=== PATIENT | male | born 1960 | race Caucasian/White ===

== ENCOUNTER → 2017-04-06 | Outpatient (CLI) | payer MEDICARE, OTHER ==
[~2017-04-06] MED LIST: CHOLESTEROL MED; CLEOCIN HC150 MG/CAP PO; CYMBALTA 30MG30 MG PO; LAMISIL AT1% TP; LOPID 600M600 MG/TAB PO; LOPID PO; LORTAB PO; MORPHINE SULFAT30 M5 PO; MS CONTIN100 MG PO; NIACIN1000 MG PO; PERCOCET 500 MG1 TAB PO; PHENERGAN 25 TA25 MG PO; PHENERGAN25 MG RC; PRILOSEC 20MG20 MG PO; RITALIN 20M20 MG/TAB PO; ROXICODONE 55 MG/TAB PO; SLO-NIACIN750 MG PO; SYNTHROID0.075 MG/T PO; TOPAMAX200 MG PO; WELLBUTRIN 75MG75 MG PO; WELLBUTRIN PO; ZUN SPOT1% TP; acid reflux med; mood stabilizer; triglyceride med
== END ==
LOC: COL.LAB 13:12
DX: Z01.89 Encounter for other specified special examinations (principal)

== ENCOUNTER → 2017-11-04 | Outpatient (CLI) | payer MEDICARE ==
[~2017-11-04] VITALS: Ht 177.8 cm; Wt 120.3 kg
[~2017-11-04] MED LIST changes: +ATARAX 25MG25 MG/TAB PO; +COLACE 100100 MG/CAP PO; +GLUCOPHAGE1000 MG PO; +GLUCOPHAGE500 MG/TAB PO; +JANUVIA 100MG100 MG PO; +KLONOPIN2 MG PO; +LATUDA120 MG PO; +LIPITOR 40MG TA40 MG PO; +MASON NATURAL2000 IU PO; +PERCOCET 325 MG1 TA2 PO; -PERCOCET 500 MG1 TAB PO; +TRILEPTAL600 MG PO
[2017-11-04 10:35] VITALS: BP 161/84; PULSE 72
[2017-11-04 11:54] VITALS: BP 125/67; PULSE 84
[2017-11-04 11:55] VITALS: BP 113/62; PULSE 82
[2017-11-04 11:56] VITALS: BP 114/65; PULSE 80
[2017-11-04 11:57] VITALS: BP 124/61; PULSE 79
== END ==
LOC: COL.CARD 10:17
DX: R07.9 Chest pain, unspecified (principal); E78.00 Pure hypercholesterolemia, unspecified
CPT/HCPCS: A9502; J2785

== ENCOUNTER → 2017-11-11 | Outpatient (CLI) | payer MEDICARE | LOC: COL.RAD 11-06 09:45 | DX: R16.0 Hepatomegaly, not elsewhere classified (principal); K76.0 Fatty (change of) liver, not elsewhere classified; K83.8 Other specified diseases of biliary tract ==

== ENCOUNTER 2018-07-15 11:23 | Inpatient (IN) | payer MEDICARE ==
[~2018-07-15] VITALS: Ht 177.8 cm; Wt 122.5 kg
[2018-07-15] VITALS (337 sets, daily range): BP systolic 129–195; BP diastolic 75–112; PULSE 68–69; TEMP 97.6–98.2; O2SAT 95–100
[2018-07-15 11:57] LABS: BASO # 0.1 (0.0-0.2); BASO % 1.1 % (0.0-2.0); EOS # 0.2 (0.0-0.7); EOS % 2.1 % (0-4.0); GRAN # 4.5 (1.4-6.5); HEMATOCRIT 45.9 % (42.0-52.0); HEMOGLOBIN 16.3 g/dl (13.5-18.0); LYMPH # 2.4 (1.2-3.4); LYMPH % 29.9 % (20.0-51.0); MEAN CELL VOLUME 86 fl (80.0-100.0); MEAN CORPUSCULAR HEMOGLOBIN 31 pg (27.0-31.0); MEAN CORPUSCULAR HGB CONC 36 g/dl (33.0-37.0); MEAN PLATELET VOLUME 10.2 fl (7.4-10.4); MONO # 0.8 (0.1-0.6); MONO % 10.2 % (1.7-9.3); PLATELET COUNT 211 K/mm3 (130-400); RED BLOOD COUNT 5.35 M/mm3 (4.20-5.60); REDCELL DISTRIBUTION WIDTH-CV 12.9 % (11.5-14.5)
[2018-07-15 12:05] LABS: INR 1.1 (0.8-3.0); PARTIAL THROMBOPLASTIN TIME 41.3 SECONDS (26.0-37.0); PROTHROMBIN TIME 12.9 SECONDS (9.7-12.8)
[2018-07-15 12:08] LABS: ALANINE AMINOTRANSFERASE 61 U/L (21-72); ALBUMIN 4.9 gm/dL (3.5-5.0); ALKALINE PHOSPHATASE 90 U/L (50-136); ANION GAP 14 mmol/L (7-16); AST,SGOT 48 U/L (15-37); BILIRUBIN,TOTAL 0.6 mg/dL (0.0-1.0); BLOOD UREA NITROGEN 11 mg/dL (9-20); CALCIUM 9.4 mg/dL (8.4-10.2); CARBON DIOXIDE 24 mmol/L (22-30); CHLORIDE 92 mmol/L (98-107); CREATININE, serum 0.78 mg/dL (0.66-1.25); GLUCOSE 137 mg/dL (74-106); LIPASE 133 U/L (23-300); POTASSIUM 4.3 mmol/L (3.4-5.0); SODIUM 131 mmol/L (137-145); TOTAL PROTEIN 8.3 gm/dL (6.4-8.2)
[2018-07-15 12:20] LABS: TROPONIN-I < 0.012 ng/mL (0.000-0.034)
[2018-07-15] MEDS ORDERED: EPA FISH OIL1 SGL PO (12:58)
[2018-07-15] MEDS ORDERED: PRINIVIL10 MG PO (12:59)
[2018-07-15] MEDS ORDERED: MS CONTIN 330 MG/TAB PO (13:02)
[2018-07-15] MEDS ORDERED: TENORMIN100 MG PO (13:04)
[2018-07-15] MEDS ORDERED: FLEXERIL 1010 MG/TAB PO (16:41)
[2018-07-15] MEDS ORDERED: ATARAX 25MG25 MG/TAB PO (16:46)
[2018-07-15] MEDS ORDERED: MIRALAX PA17 GM/Dose PO (16:51)
[2018-07-16] VITALS (581 sets, daily range): BP systolic 143–152; BP diastolic 82–95; PULSE 67–80; TEMP 97.6–98.7; O2SAT 85–100
[2018-07-16 06:02] LABS: BASO # 0.1 (0.0-0.2); BASO % 0.6 % (0.0-2.0); EOS # 0.1 (0.0-0.7); EOS % 1.4 % (0-4.0); GRAN # 5.1 (1.4-6.5); GRAN % 60.9 % (42.2-75.2); HEMATOCRIT 41.4 % (42.0-52.0); LYMPH # 2.1 (1.2-3.4); LYMPH % 25.8 % (20.0-51.0); MEAN CELL VOLUME 86 fl (80.0-100.0); MEAN CORPUSCULAR HEMOGLOBIN 31 pg (27.0-31.0); MEAN CORPUSCULAR HGB CONC 36 g/dl (33.0-37.0); MEAN PLATELET VOLUME 9.9 fl (7.4-10.4); MONO # 0.9 (0.1-0.6); MONO % 10.6 % (1.7-9.3); PLATELET COUNT 186 K/mm3 (130-400); RED BLOOD COUNT 4.84 M/mm3 (4.20-5.60)
[2018-07-16 06:40] LABS: CALCIUM 8.8 mg/dL (8.4-10.2); CREATININE, serum 0.69 mg/dL (0.66-1.25); POTASSIUM 4.1 mmol/L (3.4-5.0)
[2018-07-16] MEDS ORDERED: PRINIVIL10 MG PO (12:39)
== END 2018-07-16 13:07 | disposition home or self-care (01) | DRG 305 ==
LOC: COL.ER 11:23 → MEDICAL 13:49 → ICU 16:38
PROVIDERS: Emergency Medicine; Physician Assistant
DX: I16.1 Hypertensive emergency (principal); E87.1 Hypo-osmolality and hyponatremia; E11.9 Type 2 diabetes mellitus without complications; E78.5 Hyperlipidemia, unspecified; F31.9 Bipolar disorder, unspecified; F17.220 Nicotine dependence, chewing tobacco, uncomplicated; G89.29 Other chronic pain; M54.5 Low back pain
CPT/HCPCS: 99223-AI; 99239; J0360; J1170; J1650; J2060; J2270; J2360; J2405; J2765; J7030; J7050

== ENCOUNTER → 2019-01-19 | Outpatient (CLI) | payer OTHER, MEDICARE ==
[~2019-01-19] MED LIST changes: +EPA FISH OIL1 SGL PO; +FLEXERIL 1010 MG/TAB PO; +MIRALAX PA17 GM/Dose PO; +MS CONTIN 330 MG/TAB PO; +PRINIVIL10 MG PO; +TENORMIN100 MG PO
== END ==
LOC: MHCPAIN 10:50
DX: G89.29 Other chronic pain (principal); M47.817 Spondylosis without myelopathy or radiculopathy, lumbosacral region; M54.16 Radiculopathy, lumbar region; M53.3 Sacrococcygeal disorders, not elsewhere classified; M96.1 Postlaminectomy syndrome, not elsewhere classified
CPT/HCPCS: G0463

== ENCOUNTER 2019-02-03 23:50 | Observation (INO) | payer MEDICARE ==
[~2019-02-03] VITALS: Ht 177.8 cm; Wt 111.1 kg
[2019-02-04] VITALS (147 sets, daily range): BP systolic 124–168; BP diastolic 68–99; PULSE 58–89; TEMP 97.9–98.6; O2SAT 93–99
[2019-02-04 00:17] LABS: BASO # 0.1 (0.0-0.2); BASO % 0.9 % (0.0-2.0); EOS # 0.1 (0.0-0.7); EOS % 1.5 % (0-4.0); GRAN # 2.5 (1.4-6.5); GRAN % 46.7 % (42.2-75.2); HEMATOCRIT 43.4 % (42.0-52.0); HEMOGLOBIN 15.1 g/dl (13.5-18.0); LYMPH % 37.1 % (20.0-51.0); MEAN CELL VOLUME 88 fl (80.0-100.0); MEAN CORPUSCULAR HEMOGLOBIN 31 pg (27.0-31.0); MEAN CORPUSCULAR HGB CONC 35 g/dl (33.0-37.0); MEAN PLATELET VOLUME 9.9 fl (7.4-10.4); MONO # 0.7 (0.1-0.6); MONO % 13.6 % (1.7-9.3); PLATELET COUNT 152 K/mm3 (130-400); RED BLOOD COUNT 4.92 M/mm3 (4.20-5.60); REDCELL DISTRIBUTION WIDTH-CV 13.2 % (11.5-14.5)
[2019-02-04 00:22] LABS: INR 1.2 (0.8-3.0); PROTHROMBIN TIME 13.2 SECONDS (9.7-12.8)
[2019-02-04 00:25] LABS: PARTIAL THROMBOPLASTIN TIME 37.4 SECONDS (26.0-37.0)
[2019-02-04] MEDS ORDERED: NORVASC 10MG10 MG PO (00:27)
[2019-02-04 00:28] LABS: ALBUMIN 4.9 gm/dL (3.5-5.0); BILIRUBIN,TOTAL 0.5 mg/dL (0.0-1.0); CALCIUM 9.9 mg/dL (8.4-10.2); CREATININE, serum 0.8 (0.66-1.25); POTASSIUM 4.3 mmol/L (3.4-5.0); TOTAL PROTEIN 8.3 gm/dL (6.4-8.2)
[2019-02-04] MEDS ORDERED: COLACE 100100 MG/CAP PO ×2 (00:29→05:21)
[2019-02-04] MEDS ORDERED: ZESTRIL 20MG TA20 MG PO (00:31)
[2019-02-04] MEDS ORDERED: RITALIN 20M20 MG/TAB PO (00:32)
[2019-02-04] MEDS ORDERED: MORPHINE 1515 MG/TAB PO (00:33)
[2019-02-04] MEDS ORDERED: TRILEPTAL600 MG PO (00:34)
[2019-02-04] MEDS ORDERED: MSIR30 MG PO (00:34)
[2019-02-04] MEDS ORDERED: PRILOSEC 20MG20 MG PO (00:34)
[2019-02-04 00:38] LABS: TROPONIN-I 0.013 ng/mL (0.000-0.035)
--- NOTE | 2019-02-04 03:50 | NUR ---
Called over to the ED and received report from TOSIN Del Castillo. Patient will be brought over shortly.
--- NOTE | 2019-02-04 04:00 | NUR ---
Patient arrives at this time via strecther. Patient transfers self to unit bed by sliding over. Attached to monitoring equipment. Assessment complete. Assessment reveals vitals within normal limits. Lung sounds clear with diminished bases. Bowel sounds active x4. HR and rhythm regular, normal S1 and S2 heard. Patient has no complaints of pain at this time. No skin issues noted. Skin is warm, dry, and intact. Patient's Nallely is at the bedside. Obtained patient history, med rec, and allergies. MRSA swab complete. Patient is now resting in bed comfortably. Notified RT to bring over CPAP per patient request. Oriented patient and spouse to room and unit. Requests some water, to be provided with medications. Urinal placed within reach. No further needs at this time. Will continue to monitor. call light within reach.
[2019-02-04] MEDS ORDERED: TYLENOL 500MG500 MG PO (04:33)
[2019-02-04 04:52] LABS: CHOLESTEROL RISK RATIO 3.6; MAGNESIUM 1.7 mg/dL (1.6-2.3)
[2019-02-04] MEDS ORDERED: BETAMETHASONE VA0.1% TP (05:13)
[2019-02-04] MEDS ORDERED: WELLBUTRIN SR150 M1 PO ×2 (05:15)
[2019-02-04] MEDS ORDERED: SYNTHROID0.088 MG/T PO (05:24)
[2019-02-04] MEDS ORDERED: PRINIVIL20 MG PO (05:25)
[2019-02-04] MEDS ORDERED: PRINIVIL40 MG PO (05:26)
[2019-02-04] MEDS ORDERED: METADATECD20 PO (05:28)
[2019-02-04] MEDS ORDERED: MS CONTIN 115 MG/TAB PO ×2 (05:32)
[2019-02-04] MEDS ORDERED: NARCAN4 MG NS (05:34)
[2019-02-04] MEDS ORDERED: TYLENOL 8 HR PO (05:39)
--- NOTE | 2019-02-04 07:20 | NUR ---
Bedside report given to TOSIN Conner
--- NOTE | 2019-02-04 07:20 | NUR ---
Report recieved from Diana LEAHY. Patient and asleep in room at this time. Call light at side, offers no S/S distress or discomcfort.
--- NOTE | 2019-02-04 10:30 | NUR ---
Received report on pt from Dalila LEAHY.
--- NOTE | 2019-02-04 10:50 | NUR ---
Received pt to floor from ICU. Pt in chair, oriented to room. Denies any pain or needs at this time. Call light in reach. Breathing even and unlabored, no shortness of breath. PT alert and oriented. Breath sounds clear, pulses palpable. Will continue to monitor.
--- NOTE | 2019-02-04 10:50 | NUR ---
Transferred to room 358 via wheelchair. Selma LEAHY in room to greet patient. Patient transfers self to recliner without diff. Call light and phone at side.
--- NOTE | 2019-02-04 17:00 | NUR ---
Went in pt room to give insulin on sliding scale. Taught pt about insulin and why he was ordered to receive it. Pt was hesistant and requested his blood sugar be taken again closer to dinner so he did not have to receive a shot. Will retake before dinner at 1800. Call light in reach.
--- NOTE | 2019-02-04 19:06 | NUR ---
Hand off report given to Amber LEAHY. Pt denies any needs at this time.
--- NOTE | 2019-02-04 20:00 | NUR ---
pt resting in bed A+Ox4. reports pain 5/10 in tooth, prn meds given. reports relief. shift assessment complete. no needs at this time. call light inreach
[2019-02-05 03:59] VITALS: BP 147/81; PULSE 64; TEMP 98.4
--- NOTE | 2019-02-05 05:57 | NUR ---
pt had an uneventful night. reported pain at the beginning of the night- pain meds given and pt reported relief. no insulin needed during night. VSS. iv flushes well no redness, no swelling. tele on. cpap on\. no needs at this time. call light in reach
--- NOTE | 2019-02-05 07:00 | NUR ---
report given to TOSIN Hahn. pt reports no needs at this time
[2019-02-05] MEDS ORDERED: ZESTRIL40 MG PO (07:15)
[2019-02-05 07:25] LABS: CALCIUM 9.6 mg/dL (8.4-10.2); CREATININE, serum 0.74 (0.66-1.25)
--- NOTE | 2019-02-05 07:55 | NUR ---
Pt lying in bed, awakens to verbal stimuli, CPAP in place. Pt alert and oriented. Denies any pain or shortness of breath. Breathing even and unlabored. Completed morning assessment. Pt ambulating in room, independent, denies any pain or shortness of breath with exertion. Will continue to monitor, call light in reach.
[2019-02-05 07:59] VITALS: BP 142/83; PULSE 61; TEMP 98.3
[2019-02-05] MEDS ORDERED: CATAPRES 0.1MG0.1 MG PO (11:15)
--- NOTE | 2019-02-05 12:10 | NUR ---
All discharge paperwork given, all questions asked and answered. Int to LF removed, catheter tip intact, no redness or swelling noted. All belongings with paperwork. [facility] staff escorted pt to elevator.
--- NOTE | 2019-02-05 13:00 | NUR ---
KIESHA met with the patient and his Luba to discuss a discharge plan. The patient lives in [place] with Luba. The patient has a walker and a CPAP. The patient receives his medication and CPAP supplies from the [place]. The patient's PCP is Dr. Jasen Manley and he also receives care from the [facility]. The patient does not have advanced directives in the EMR and he was not interested in obtaining a DPOA-HC form at this time. The patient is to return home upon discharge. There are no additional needs at this time.
== END 2019-02-05 12:22 | disposition home or self-care (01) ==
LOC: COL.ER 23:50 → ICU 02-04 00:59 → MEDICAL 02-04 10:50
PROVIDERS: Emergency Medicine; Nurse Practitioner Family; ADMIT Family Medicine
DX: I16.9 Hypertensive crisis, unspecified (principal); R07.9 Chest pain, unspecified; I10 Essential (primary) hypertension; E11.9 Type 2 diabetes mellitus without complications; Z79.84 Long term (current) use of oral hypoglycemic drugs; E78.5 Hyperlipidemia, unspecified; E03.9 Hypothyroidism, unspecified; F31.9 Bipolar disorder, unspecified; K21.9 Gastro-esophageal reflux disease without esophagitis; G47.30 Sleep apnea, unspecified; G89.29 Other chronic pain; M54.9 Dorsalgia, unspecified; Z79.899 Other long term (current) drug therapy; F17.220 Nicotine dependence, chewing tobacco, uncomplicated; Z88.0 Allergy status to penicillin
CPT/HCPCS: G0378; J1650; J7030

== ENCOUNTER 2019-04-22 23:31 | Emergency (ER) | payer OTHER ==
[~2019-04-22] VITALS: Ht 177.8 cm; Wt 122.7 kg
[~2019-04-22 23:31] MED LIST changes: +BETAMETHASONE VA0.1% TP; +CATAPRES 0.1MG0.1 MG PO; +METADATECD20 PO; +MORPHINE 1515 MG/TAB PO; +MS CONTIN 115 MG/TAB PO; +MSIR30 MG PO; +NARCAN4 MG NS; +NORVASC 10MG10 MG PO; +PRINIVIL20 MG PO; +PRINIVIL40 MG PO; +SYNTHROID0.088 MG/T PO; +TYLENOL 500MG500 MG PO; +TYLENOL 8 HR PO; +WELLBUTRIN SR150 M1 PO; +ZESTRIL 20MG TA20 MG PO; +ZESTRIL40 MG PO
[2019-04-22 23:35] VITALS: TEMP 97.8
[2019-04-22 23:50] LABS: BASO # 0.1 (0.0-0.2); BASO % 1.1 % (0.0-2.0); EOS # 0.2 (0.0-0.7); EOS % 3.1 % (0-4.0); GRAN # 3.9 (1.4-6.5); GRAN % 54.2 % (42.2-75.2); HEMATOCRIT 42.5 % (42.0-52.0); HEMOGLOBIN 14.2 g/dl (13.5-18.0); LYMPH # 2.2 (1.2-3.4); LYMPH % 30.2 % (20.0-51.0); MEAN CELL VOLUME 89 fl (80.0-100.0); MEAN CORPUSCULAR HEMOGLOBIN 30 pg (27.0-31.0); MEAN CORPUSCULAR HGB CONC 33 g/dl (33.0-37.0); MEAN PLATELET VOLUME 10.4 fl (7.4-10.4); MONO # 0.8 (0.1-0.6); MONO % 10.8 % (1.7-9.3); PLATELET COUNT 190 K/mm3 (130-400); RED BLOOD COUNT 4.77 M/mm3 (4.20-5.60); REDCELL DISTRIBUTION WIDTH-CV 13.4 % (11.5-14.5)
[2019-04-22 23:56] LABS: INR 1.1 (0.8-3.0); PROTHROMBIN TIME 12.5 SECONDS (9.7-12.8)
[2019-04-23 00:01] LABS: ALANINE AMINOTRANSFERASE 71 U/L (21-72); ALBUMIN 4.7 gm/dL (3.5-5.0); ALKALINE PHOSPHATASE 80 U/L (50-136); ANION GAP 14 mmol/L (7-16); AST,SGOT 69 U/L (15-37); BILIRUBIN,TOTAL 0.5 mg/dL (0.0-1.0); BLOOD UREA NITROGEN 12 mg/dL (9-20); CALCIUM 9.8 mg/dL (8.4-10.2); CARBON DIOXIDE 23 mmol/L (22-30); CHLORIDE 100 mmol/L (98-107); CREATININE, serum 1.01 (0.66-1.25); GLUCOSE 105 mg/dL (74-106); SODIUM 137 mmol/L (137-145); TOTAL PROTEIN 7.8 gm/dL (6.4-8.2)
[2019-04-23 00:13] LABS: TROPONIN-I < 0.012 ng/mL (0.000-0.035)
[2019-04-23] MEDS ORDERED: CATAPRES 0.1MG0.1 MG PO (00:25)
[2019-04-23] MEDS ORDERED: COLACE 100100 MG/CAP PO (00:26)
[2019-04-23] MEDS ORDERED: LATUDA120 MG PO (00:27)
[2019-04-23] MEDS ORDERED: GLUCOPHAGE1000 MG PO (00:28)
[2019-04-23] MEDS ORDERED: LITHIUM CA150 MG/CAP PO (00:30)
[2019-04-23] MEDS ORDERED: MORPHINE 1515 MG/TAB PO (00:35)
[2019-04-23] MEDS ORDERED: EPA FISH OIL1 SGL PO (00:36)
[2019-04-23 01:27] VITALS: BP 116/67
[2019-04-23] MEDS ORDERED: ANTIVERT 25MG25 MG PO ×3 (01:44→01:58)
[2019-04-23 02:00] VITALS: PULSE 65
== END 2019-04-23 02:00 | disposition home or self-care (01) ==
LOC: COL.ER 23:31
PROVIDERS: Emergency Medicine
DX: H81.09 Meniere's disease, unspecified ear (principal); E78.5 Hyperlipidemia, unspecified; E11.9 Type 2 diabetes mellitus without complications; I10 Essential (primary) hypertension; F31.9 Bipolar disorder, unspecified; K21.9 Gastro-esophageal reflux disease without esophagitis; E03.9 Hypothyroidism, unspecified; F43.10 Post-traumatic stress disorder, unspecified; F17.290 Nicotine dependence, other tobacco product, uncomplicated; Z79.84 Long term (current) use of oral hypoglycemic drugs

== ENCOUNTER → 2019-06-10 | Outpatient (CLI) | payer MEDICARE, OTHER ==
[~2019-06-10] MED LIST changes: +ANTIVERT 25MG25 MG PO; +LITHIUM CA150 MG/CAP PO
== END ==
LOC: COL.RAD 06:47
DX: Z01.812 Encounter for preprocedural laboratory examination (principal); R47.81 Slurred speech
CPT/HCPCS: A9585

== ENCOUNTER → 2019-06-21 | Outpatient (CLI) | payer MEDICARE | LOC: DIA.ED 04-21 08:15 | DX: E11.9 Type 2 diabetes mellitus without complications (principal); E78.5 Hyperlipidemia, unspecified; I10 Essential (primary) hypertension; E03.9 Hypothyroidism, unspecified | CPT/HCPCS: G0108 ==

== ENCOUNTER 2023-10-22 11:51 | Emergency (ER) | payer OTHER ==
[~2023-10-22] VITALS: Ht 177.8 cm; Wt 111.8 kg
[2023-10-22 11:57] VITALS: TEMP 97.4
[2023-10-22] MEDS ORDERED: NS 1,000 ML IV ONE (12:15)
[2023-10-22 12:29] LABS: BASO # 0.1 K/mm3 (0.0-0.2); BASO % 1.1 % (0.0-2.0); EOS # 0.2 K/mm3 (0.0-0.7); GRAN # 4.1 K/mm3 (1.4-6.5); GRAN % 58.1 % (42.2-75.2); HEMATOCRIT 37.9 % (42.0-52.0); HEMOGLOBIN 12.1 g/dl (13.5-18.0); LYMPH # 1.7 K/mm3 (1.2-3.4); LYMPH % 24.5 % (20.0-51.0); MEAN CELL VOLUME 92 fl (80.0-100.0); MEAN CORPUSCULAR HEMOGLOBIN 29 pg (27-31); MEAN CORPUSCULAR HGB CONC 32 g/dl (33.0-37.0); MONO # 0.9 K/mm3 (0.1-0.6); PLATELET COUNT 149 K/mm3 (130-400); RED BLOOD COUNT 4.13 M/mm3 (4.20-5.60)
[2023-10-22 12:49] LABS: ALBUMIN 3.7 gm/dL (3.4-4.8); BILIRUBIN,TOTAL 0.5 mg/dL (0.2-1.2); CALCIUM 9.8 mg/dL (8.4-10.2); CREATININE, serum 1.24 mg/dL (0.72-1.25); POTASSIUM 4.5 mmol/L (3.5-4.5)
[2023-10-22 15:36] VITALS: BP 115/65; PULSE 53
== END 2023-10-22 15:38 | disposition home or self-care (01) ==
LOC: COL.ER 11:51
PROVIDERS: Personal Emergency Response Attendant
DX: I95.9 Hypotension, unspecified (principal); R74.01 Elevation of levels of liver transaminase levels; Z98.61 Coronary angioplasty status
CPT/HCPCS: J7030

== ENCOUNTER 2024-03-18 11:00 | Outpatient (RCR) | payer OTHER | END 2024-03-20 | LOC: PT.GENESIS | DX: M54.16 Radiculopathy, lumbar region (principal); R26.89 Other abnormalities of gait and mobility ==

== ENCOUNTER 2024-04-05 11:00 | Outpatient (RCR) | payer OTHER | END 2024-04-20 | disposition home or self-care (01) | LOC: PT.GENESIS | DX: M54.50 Low back pain, unspecified (principal) ==

== ENCOUNTER 2024-05-17 11:15 | Outpatient (RCR) | payer OTHER | END 2024-05-21 | disposition home or self-care (01) | LOC: PT.GENESIS | DX: M54.16 Radiculopathy, lumbar region (principal) ==